=== PATIENT | female | born 1980 | race Two or more races ===

== ENCOUNTER 2021-12-31 08:36 | Emergency (ER) | payer BC ==
[~2021-12-31] VITALS: Ht 167.6 cm; Wt 104.3 kg
--- NOTE | 2021-12-31 08:40 | NUR ---
BIBS C/O SEVERE HIP PAIN X3 WEEKS DENIES ANY INJURY, 10/10 PAIN ON PAIN SCALE. PAIN STARTED IN HER LOWER BACK AND THEN RADIATED TO HER HIP. DESCRIBED PAIN A STABBING AND CRUSHING PAIN. VITALS ARE WITHIN NORMAL LIMITS. ABLE TO AMBULATE ON HER OWN WITH ASSISTANCE OF A CANE. AWAITING MD SEVILLA.
--- NOTE | 2021-12-31 08:55 | NUR ---
RECIVED PT AWAKE AND ALERT NO SOB
[2021-12-31] MEDS ORDERED: KETOROLAC TROMETHAMINE INJ 60 MG/2 ML VIAL IM ONE (09:00)
[2021-12-31] MEDS ORDERED: IBUP-1953 PO (09:37)
[2021-12-31] MEDS ORDERED: HYDR-3980 PO (09:37)
[2021-12-31] MEDS ORDERED: KETOROLAC TROMETHAMINE INJ 30 MG/ML VIAL ONE (09:46)
--- NOTE | 2021-12-31 10:08 | NUR ---
D/C INSTRACTION AND RX GIVEN TO PT FULLY AND VERBLIZED UNDERSTOOD TX REALEVE PAIN 0/10
[2021-12-31 10:15] VITALS: BP 125/70
== END 2021-12-31 10:16 | disposition home or self-care (01) ==
LOC: ER 08:44
DX: M54.42 Lumbago with sciatica, left side (principal); G43.909 Migraine, unspecified, not intractable, without status migrainosus; M19.90 Unspecified osteoarthritis, unspecified site; Z98.890 Other specified postprocedural states; Z88.6 Allergy status to analgesic agent
CPT/HCPCS: 99284; 96372; 72110; 73503; J1885; 73502